=== PATIENT | female | born 1975 | race Caucasian/White ===

== ENCOUNTER → 2017-11-13 14:54 | Outpatient (CLI) | payer OTHER, SELFPAY ==
[2017-11-17 09:07] LABS: Clam <0.10 kU/L (Class 0); Codfish <0.10 kU/L (Class 0); Corn <0.10 kU/L (Class 0); Egg, White <0.10 kU/L (Class 0); Milk (Cow) <0.10 kU/L (Class 0); Peanut <0.10 kU/L (Class 0); SCALLOP <0.10 kU/L (Class 0); SESAME SEED <0.10 kU/L (Class 0); Shrimp <0.10 kU/L (Class 0); Soybean <0.10 kU/L (Class 0); Walnut, (Food) <0.10 kU/L (Class 0); Wheat <0.10 kU/L (Class 0)
[2017-11-17 11:31] LABS: Gluten <0.10 kU/L (Class 0)
[2017-11-17 14:06] LABS: Alternaria tenuis <0.10 kU/L (Class 0); Ash, White <0.10 kU/L (Class 0); Aspergillus fumigatus <0.10 kU/L (Class 0); Bermuda Grass <0.10 kU/L (Class 0); Birch <0.10 kU/L (Class 0); Black Walnut <0.10 kU/L (Class 0); Cat Hair / Dander,Stand <0.10 kU/L (Class 0); Cedar, Mountain <0.10 kU/L (Class 0); Cladosporium herbarum <0.10 kU/L (Class 0); Cockroach, American <0.10 kU/L (Class 0); Cottonwood <0.10 kU/L (Class 0); D farinae Mite <0.10 kU/L (Class 0); D pteronyssinus <0.10 kU/L (Class 0); Dog Epithelia <0.10 kU/L (Class 0); Elm, American White <0.10 kU/L (Class 0); Immunoglobulin E 10 IU/mL (0-100); Maple/Box Elder <0.10 kU/L (Class 0); Mulberry, White <0.10 kU/L (Class 0); Oak, White <0.10 kU/L (Class 0); Pecan <0.10 kU/L (Class 0); Penicillium Notatum <0.10 kU/L (Class 0); Pigweed, Rough <0.10 kU/L (Class 0); Ragweed, Short/Common <0.10 kU/L (Class 0); Russian Thistle <0.10 kU/L (Class 0); Sheep Sorrel <0.10 kU/L (Class 0); Sycamore, American <0.10 kU/L (Class 0); Timothy Grass <0.10 kU/L (Class 0)
[2017-11-18 09:12] LABS: Mouse Urine <0.10 kU/L (Class 0)
== END ==
PROVIDERS: Family Provider Family Medicine; PCP Family Medicine; Referring Provider Otolaryngology; Visit Provider Otolaryngology
DX: T78.40XA Allergy, unspecified, initial encounter (principal)
CPT/HCPCS: 36415; 82785; 86003

== ENCOUNTER → 2018-11-16 | Outpatient (CLI) | payer BC, SELFPAY ==
--- NOTE | 2018-11-16 08:03 | CT_ITS ---
STUDY: CT MAXILLOFACIAL SINUSES REASON FOR EXAM: Female, 43 years old. Sinusitis RADIATION DOSAGE (If Supplied By Facility): CTDIvol = ( 33.06 ) mGy, DLP = ( 813.19 ) mGycm TECHNIQUE: The patient was scanned in a multi detector CT scanner. High resolution axial imaging was performed without the administration of intravenous contrast material. Sagittal and coronal images were reconstructed. Individualized dose optimization techniques were used for this CT. COMPARISON: None. FINDINGS: FRONTAL SINUSES: Normal aeration, without mucosal inflammatory disease. ETHMOIDAL SINUSES: Normal aeration, without mucosal inflammatory disease. MAXILLARY SINUSES: Normal aeration, without mucosal inflammatory disease. SPHENOIDAL SINUSES: Normal aeration, without mucosal inflammatory disease. There is patency of the bilateral maxillary infundibuli with normal uncinate processes, ethmoid bullae, and hiatus semilunaris. Normal bilateral middle turbinates. Normal bilateral inferior turbinates. Normal midline nasal septum. There is patency of the bilateral nasal airways. The visualized osseous structures are normal. The visualized bilateral orbital contents are normal. CT/Sinus/Facial Bone IMPRESSION: Normal CT examination of the maxillofacial sinuses. Electronically Signed: Nahum Marshall, at 16:58 EDT Tel , Service support ,
== END | disposition home or self-care (01) ==
PROVIDERS: Family Provider Family Medicine; PCP Family Medicine; Referring Provider Otolaryngology; Visit Provider Otolaryngology
DX: J32.9 Chronic sinusitis, unspecified (principal)
CPT/HCPCS: 70486

== ENCOUNTER 2019-02-16 07:40 | Day surgery (SDC) | payer BC, SELFPAY ==
--- NOTE | 2019-02-16 | IMM_PTH ---
PATIENT: HERNANDO BARNES LOC: [facility] – [place] U#:[id number] AGE/SX: 44/F ROOM: RE02/16/[address]: Dr. Quirino Davis MD : 1975 BED: DIS: 02/16/2019 SPEC #: [id number] RECD: 02/18/19 12:53 STATUS: MEKA REQ #: [id number] KAREN: 02/16/19 00:[address]: Quirino Davis DEPT: IMMUNOHISTOCHEMISTRY RECD BY: Yuridia Wiley ENTERED: 02/18/19 12:55 SP TYPE: IMMUNO OTHR DR: Dr. Jc Hunt, DO Tissues: Nasopharynx, NOS Procedures: BCL-2 (add) BCL-6 (add) CD10 (add) CD138 (add) CD15 (add) CD20 (add) CD23 (add) CD3 (add) CD30 (add) CD43 (add) CD45 (add) CD5 (add) CD79A (add) CYCLIN (add) KAPPA (add) LAMBDA (add) MACRO (add) MUM1 (add) C-MYC (add) Pankeratin (initial) PHYSICIAN & INSTITUTION [place] [id number] SPECIMEN INFORMATION: Tissue Source: Nasopharyngeal mass Clinical Info: Neoplasm of nasopharynx Specimen Number: [id number] CPT code: 57540, 60781 x19 METHODOLOGY: Deparaffinized sections of prefer/formalin-fixed tissue or PAP/DQ stained slides are incubated with monoclonal/polyclonal antibodies/oligonucleotide probes. Localization is made via biotin free immunoperoxidase method. Appropriate controls are performed and reacted as expected. Results on target cell population are indicated in the following table: RESULTS: ANTIBODY / CLONE RESULT AE1-3 (AE1/AE3/PCK26) negative CD3 (PS1) positive CD5 (SP10) positive CD10 (56C6) negative CD15 (MMA) negative CD20 (L26) negative CD23 (1B12) negative CD30 (Naldo-H2) negative CD43 (L60) negative CD45 (RP2/18) positive CD79a (11E3) negative CD138 (B-A38) negative BCL-2 (bcl-2/100/D5) negative BCL-6 (AC150G/A8) negative Cyclin D1/BCL-1 (SP4) negative [place] (polyclonal) negative Lambda (polyclonal) negative MUM1 (MRQ-43) negative C-MYC (Y69) negative Macro (HAM-56) positive, focal These tests were developed and their performance characteristics determined by [facility]. They may not have been cleared or approved by the U.S. Food and Drug Administration. The FDA has determined that such clearance or approval is not necessary. The above immunohistochemical/dualISH markers are ordered and reviewed by the Pathologist. INTERPRETATION: Nasopharyngeal, biopsy: Polytypic lymphoid tissue. See comment. AM:denisse 02/19/19 Comment: There is no evidence of lymphoma. Clinical correlation necessary.
[2019-02-16 08:12] VITALS: BP 126/68; PULSE 74; RESP 16; TEMP 36.2; O2SAT 98
[2019-02-16] MEDS: Lactated Ringers 1,000 ML 100 ML IV (08:17)
[2019-02-16 08:21] LABS: Internal QC Validated? YES +Cl - CLEAR BKGD; Pregnancy, Urine Negative Negative
--- NOTE | 2019-02-16 08:22 | PCM.DC ---
You will use the following diet at home:: No restrictions Discharge Activity: Return to Normal Activity Call your doctor if your incision/area has: Increased Pain/ Swelling Allergies/Adverse Reactions: Allergies No Known Allergies Allergy (Verified 02/12/19 15:46) Medications to take at Discharge Fluticasone 0.05% [Flonase Nasal [place]] 1 spray NASAL DAILY 02/12/19 L.acidoph,Paracasei, B.lactis [Probiotic] 1 ea PO DAILY 02/12/19 Montelukast [Singulair] 10 mg PO DAILY 02/12/19 Multivitamin [Once Daily] 1 ea PO DAILY 02/12/19 [place]-3 Fatty Acids [Fish Oil] 500 mg PO DAILY 02/12/19 Omeprazole 40 mg PO DAILY 02/12/19 Suvorexant [Belsomra] 15 mg PO QHS 02/12/19 Orders to be completed after discharge: ,Urine Time Frame: 02/16/19, Facility: [facility], Location: Laboratory Primary Care Physician: Jc Hunt DO [Primary Care Provider] - Test Results: Test results from this visit will be discussed in further detail at your follow-up appointment, if applicable. Please Follow Up With: Dennis Davis MD When: 1 week
--- NOTE | 2019-02-16 08:23 | PCM.OPRPT ---
Problem List (1) Nasopharyngeal mass Status: Chronic Report of Operation Date of Procedure: 02/16/19 Pre-Operative Diagnosis: nasopharyngeal mass Post-Operative Diagnosis: nasopharyngeal mass Surgery/Procedure Performed:: endoscopic biopsy of nasopharyngeal mass Type of Anesthesia:: General Description of Procedure: on the day of the procedure, after appropriate informed consent was obtained, the patient was brought to the operating room and placed in supine position on the operating table. she was placed under general endotracheal anesthesia by the anesthesiologist. the endotracheal tube was secured, the eyes were taped. the nasal cavities were decongested with oxymetazoline-soaked pledgets. a zero degree endoscope was used to evaluate the left nasal cavity. the nasopharygneal mass was visualized. multiple biopsies were taken with a tripp cut and hemostasis was achieved with suction cautery. the patient was awoken from anesthesia and transferred to the PACU in stable condition.
--- NOTE | 2019-02-16 09:50 | PHA_PTH ---
PATIENT: HERNANDO BARNES [place] [facility] [place][id number] AGE/SX: 44/F ROOM: RE02/16/[address]: Dr. Quirino Davis MD : 1975 BED: DIS: 02/16/2019 SPEC #: [id number] RECD: 02/16/19 12:20 STATUS: MEKA REHAN #: [id number] KAREN: 02/16/19 09:[address]: Quirino Davis DEPT: SURGICAL PATHOLOGY RECD BY: Carroll Bernard ENTERED: 02/16/19 12:20 SP TYPE: PHARYNX BX OTHR DR: Dr. Jc Hunt DO Tissues: Pharynx, NOS Procedures: Special Stain Group II Surgery Specimen Level IV HEADER OPERATION: Nasopharyngeal biopsy PRE-OP DIAGNOSIS: Benign neoplasm of nasopharynx; dysphagia, GERD TISSUE SUBMITTED: Nasopharyngeal mass sent to lab fresh; rule out lymphoma MICROSCOPIC DIAGNOSIS Nasopharyngeal mass, biopsy: Lymphoid tissue with reactive change. Organisms consistent with actinomyces. See comment. AM:denisse 02/19/19 COMMENT Crush prep of the specimen is prepared and reported as lymphoid tissue present. Immunohistochemistry ([id number]) supports the above diagnosis. Flow cytometric analysis is concordant by microscopic description. Sections show reactive lymphoid tissue beneath respiratory epithelium as seen in tonsillar and/or adenoidal tissue. Clinical correlation is suggested. Case has been reviewed in consultation with Dr. Ferreira who concurs with the above diagnosis. IDC:SJ MICROSCOPIC DESCRIPTION Slides are reviewed. GROSS DESCRIPTION Received fresh for OR consultation labeled with the patient's name is a specimen designated nasopharyngeal mass. The specimen consists of multiple irregular fragments of pink-flores soft tissue that in aggregate measure 2 x 1 x 0.1 cm. Slagger portions are submitted for flow cytometric analysis. Slagger touch preps are prepared and reported as lymphoid tissue present. / AM:ednisse 02/16/19 TC:5 CPT: 34427, 92305
[2019-02-16] MEDS: Oxymetazoline 0.05% 1 SPRAY SPRAY.BTL 15 SPRAY (10:20)
[2019-02-16 10:58] VITALS: BP 101/67; BP 126/68; PULSE 73; RESP 16; TEMP 36.3; O2SAT 98
[2019-02-16 11:16] VITALS: BP 105/60; BP 126/68; PULSE 66; RESP 16; TEMP 36.3; O2SAT 96
[2019-02-16 11:41] VITALS: BP 104/64; BP 126/68; PULSE 78; RESP 16; TEMP 36.3; O2SAT 98
== END 2019-02-16 11:44 | disposition home or self-care (01) ==
LOC: SDC 07:42 → AC 07:44
PROVIDERS: Anesthesiology; Family Provider Student in an Organized Health Care Education/Training Program; PCP Student in an Organized Health Care Education/Training Program; Referring Provider Otolaryngology; Visit Provider Otolaryngology
PROC: (CPT 42999; principal; 2019-02-16 09:35)
DX: D10.6 Benign neoplasm of nasopharynx (principal); R13.13 Dysphagia, pharyngeal phase; K21.9 Gastro-esophageal reflux disease without esophagitis; Z87.891 Personal history of nicotine dependence; Z79.899 Other long term (current) drug therapy
CPT/HCPCS: 42999; 81025; 88305; 88313; 88341; 88342; J7120; J2405

== ENCOUNTER → 2020-07-18 | Outpatient (CLI) | payer OTHER, SELFPAY ==
--- NOTE | 2020-07-18 11:15 | MASS_PTH ---
PATIENT: HERNANDO BARNES LOC: [place] U#:[id number] AGE/SX: 45/F ROOM: RE07/18/[address]: Dr. Quirino Davis MD : 1975 BED: DIS: 07/18/2020 SPEC #: [id number] RECD: 07/18/20 12:06 STATUS: MEKA REJordan #: [id number] KAREN: 07/18/20 11:[address]: Quirino Davis DEPT: SURGICAL PATHOLOGY RECD BY: Celestina Ennis ENTERED: 07/18/20 13:04 SP TYPE: Mass OTHR DR: Dr. Jc Hunt, [facility], [place] Tissues: Pharynx, NOS Procedures: Special Stain Group II Surgery Specimen Level IV Imprint (control) HEADER OPERATION: Adenoidectomy, biopsy of nasopharynx PRE-OP DIAGNOSIS: Benign neoplasm of nasopharynx TISSUE SUBMITTED: Nasopharyngeal mass (in saline) MICROSCOPIC DIAGNOSIS Nasopharyngeal mass, biopsy: Lymphoid tissue with reactive changes. Negative for malignancy. See comment. JOHN:denisse 07/19/2020 COMMENT The specimen is evaluated at the time of touch imprint by Dr. Ferreira. Immediate Evaluation = Respiratory epithelial cells and numerous lymphocytes are noted. The findings are consistent with adenoid tissue with reactive changes. Clinical correlation and appropriate follow up are necessary. Please make reference to previous specimen ([id number]) nasopharyngeal mass, biopsy with diagnosis of ?lymphoid tissue with reactive changes.? Case has been reviewed in consultation with Dr. Cunningham who concurs with the above diagnosis. IDC:AM MICROSCOPIC DESCRIPTION Slides are reviewed. GROSS DESCRIPTION Received in saline is one container labeled with the patient's name and designated nasopharyngeal mass. The specimen consists of multiple irregular fragments of light flores soft tissue that in aggregate measure 2.2 x 0.3 x 0.1 cm. A piece is saved for flow cytometry study if needed. Two touch imprints are prepared. The entire specimen is submitted in one cassette. / JOHN:denisse 6/1/21 TC:5 CPT: 81709, 70112
== END | disposition home or self-care (01) ==
LOC: LABSPEC 12:40
PROVIDERS: PCP Student in an Organized Health Care Education/Training Program; Referring Provider Otolaryngology; Visit Provider Otolaryngology
DX: D10.6 Benign neoplasm of nasopharynx (principal)
CPT/HCPCS: 88305; 88313